=== PATIENT | male | born 1960 | race Caucasian/White ===

== ENCOUNTER 2016-06-11 13:21 | Day surgery (SDC) | payer OTHER ==
[2016-06-08 15:05] VITALS: BMI 27.6
[~2016-06-11] VITALS: Ht 170.2 cm; Wt 78.0 kg
[2016-06-11] VITALS (12 sets, daily range): BP systolic 121–149; BP diastolic 55–85; PULSE 54–89; RESP 15–19; Ht 170.2 cm; Wt 78.0 kg
[2016-06-11] MEDS ORDERED: CEFAZOLIN 2 GM/50 ML (PMX) 50 ML IVPB ONE (13:30)
[2016-06-11] MEDS ORDERED: SOD CHLORIDE 0.9% 1,000 ML IV ONE (13:30)
[2016-06-11] MEDS ORDERED: POLYMYXIN/BACITRACIN 1L IRRIG ONE (13:56)
[2016-06-11] MEDS ORDERED: BUPIVACAINE 0.25% (MPF) 30 ML INJ ONE (14:00)
[2016-06-11] MEDS ORDERED: ROCURONIUM 50 MG INJ ONE (14:35)
[2016-06-11] MEDS ORDERED: PROPOFOL 20 ML ONE (14:35)
[2016-06-11] MEDS ORDERED: LIDOCAINE 2% (SDV) 5 ML INJ ONE (14:35)
[2016-06-11] MEDS ORDERED: FENTAnyl 50 MCG/ML VIAL ONE ×2 (14:40→15:14)
--- NOTE | 2016-06-11 14:54 | RADRPT ---
PROCEDURE: XR Chest. CLINICAL INDICATION: PRE OP TECHNIQUE: PA and Lateral views of the chest were obtained. COMPARISON: None. FINDINGS: The soft tissues are normal. The bony elements are normal. The heart, cardiomediastinal silhouette and hilar structures are normal. The pulmonary vasculature is normal. There is a left-sided aorta. The lungs are clear. The costophrenic angles are normal. IMPRESSION: 1. Normal chest x-ray. RPTAT:AAJJ Physician Tyler Date Time Electronically viewed and signed by Kingston Hannon Physician on 06/11/2016 14:54 SHWETA/
[2016-06-11] MEDS ORDERED: NEOSTIGMINE 3 MG/3 ML SYRINGE ONE (15:24)
[2016-06-11] MEDS ORDERED: GLYCOPYRROLATE 0.4 MG INJ ONE (15:24)
[2016-06-11] MEDS ORDERED: HYDROCODONE/APAP (5/325) TAB PO ONE (16:00)
--- NOTE | 2016-06-11 19:17 | OPR ---
DATE OF OPERATION: 06/11/2016 INDICATION: This is a 56-year-old male with a right inguinal hernia. He requests surgical repair. Risks, alternatives, benefits, and personnel were discussed with the patient. The patient expresse d understanding and consents to the operation. PREOPERATIVE DIAGNOSIS: Right inguinal hernia. POSTOPERATIVE DIAGNOSES: Sliding right inguinal hernia. OPERATION: 1. Open sliding right inguinal hernia repair with medium size Ultrapro hernia system mesh. 2. Right ilioinguinal nerve block, CPT code 08341. SURGEON: Yolette Dunbar MD SPECIMENS: None. COMPLICATIONS: None. ANESTHESIA: General. DESCRIPTION OF PROCEDURE: The patient was taken to the OR and prepped and draped in the usual steri le fashion. Surgical timeout was performed. IV antibiotics were given. Right inguinal oblique inc ision was made with a 10 blade. Dissection cautery was carried down to the external oblique fascia, which was opened with a 15 blade. This incision is extended medial inferiorly and lateral superior ly with Metzenbaum scissors. Cord structures were identified and encircled with a [place] drain. I ndirect hernia was identified. There was a sliding component, which was reduced. This indirect her negrita is bolstered with the disk portion of the UltraPro hernia system mesh, which was secured in plac e with a running 0 Prolene from the pubic tubercle along the shelving edge of the inguinal ligament and superiorly to the internal oblique with interrupted 3-0 Vicryl. [place] mesh was secured in a sim ilar fashion with a running 0 Prolene from the pubic tubercle along the shelving edge of the inguina l ligament and superiorly to the internal oblique with interrupted 3-0 Vicryl. Straps are created a nd reapproximated with interrupted 0 plain to recreate the inguinal ring. External oblique fascia i s closed with a running 3-0 Vicryl. Stephanie's was closed with interrupted 0 Vicryl. Skin was closed with skin paresh. Local anesthesia was injected into the incision site. A right ilioinguinal blo ck was performed by finding a point 2 cm medial and 2 cm inferior to the ASIS. Marcaine was injecte d in a fanning motion after penetration to the external and internal oblique fascia. There was good hemostasis. Dry dressings were applied. Dictated By: YOLETTE NAPOLES/SHAILA Conf#: [id number] [facility]#: [id number]
--- NOTE | 2016-06-12 11:25 | RADRPT ---
Vent Rate: 67 bpm RR Interval: 0 msec IA Interval: 136 msec QRS Duration: 82 msec QT Interval: 420 msec QTC Interval: 443 msec P-R-T [place]: 27 - 7 - 54 degrees Normal sinus rhythm Septal infarct , age undetermined Abnormal ECG Electronically Signed By: Ceferino Green [id number]
[2016-06-12] MEDS ORDERED: OXYC-279 PO (16:57)
== END 2016-06-11 17:55 | disposition home or self-care (01) ==
LOC: SDS 13:21
PROVIDERS: ATTEND Surgery
DX: K40.90 Unilateral inguinal hernia, without obstruction or gangrene, not specified as recurrent (principal)
CPT/HCPCS: 49505; 71010; 93005; C1781; J2710; J3010; Z7512; Z7610

== ENCOUNTER 2016-06-12 13:06 | Emergency (ER) | payer OTHER ==
[~2016-06-12] VITALS: Ht 167.6 cm; Wt 68.0 kg
[2016-06-12 13:30] VITALS: Ht 167.6 cm; Wt 68.0 kg
[2016-06-12] MEDS ORDERED: morphine 4 MG/ML VIAL IV STA ×2 (14:04→16:14)
[2016-06-12] MEDS ORDERED: OXYCODONE/ACETAMINOPHEN (5/325) TAB PO ONE (14:30)
[2016-06-12 14:57] LABS: ADD SCAN DIFF NO
[2016-06-12 15:01] LABS: BASOPHILS % 0.1 % (0.0-2.0); EOSINOPHILS # 0.2 10^3/ul (0.0-0.5); EOSINOPHILS % 1.7 % (0.0-7.0); HEMATOCRIT 41.6 % (42.0-52.0); HEMOGLOBIN 14.7 g/dl (14.0-18.0); LYMPHOCYTES # 1.7 10^3/ul (0.8-2.9); LYMPHOCYTES % 17.5 % (15.0-51.0); MEAN CORPUSCULAR HEMOGLOBIN 30.9 pg (29.0-33.0); MEAN CORPUSCULAR HGB CONC 35.3 g/dl (32.0-37.0); MEAN CORPUSCULAR VOLUME 87.4 fl (82.0-101.0); MEAN PLATELET VOLUME 10.3 fl (7.4-10.4); MONOCYTE # 0.9 10^3/ul (0.3-0.9); MONOCYTES % 9.4 % (0.0-11.0); NEUTROPHIL # 6.8 10^3/ul (1.6-7.5); NEUTROPHILS % 70.9 % (39.0-77.0); PLATELET COUNT 181 10^3/UL (140-415); RED BLOOD COUNT 4.76 10^6/ul (4.70-6.10); RED CELL DISTRIBUTION WIDTH 11.9 % (11.5-14.5); WHITE BLOOD COUNT 9.5 10^3/ul (4.8-10.8)
[2016-06-12 15:22] LABS: ADD UMIC NO; URINE BILIRUBIN (Dip) NEGATIVE (NEGATIVE); URINE BLOOD (Dip) NEGATIVE (NEGATIVE); URINE COLOR LT. YELLOW (YELLOW); URINE GLUCOSE (Dip) NEGATIVE (NEGATIVE); URINE KETONES (Dip) NEGATIVE (NEGATIVE); URINE LEUKOCYTE ESTERASE (Dip) NEGATIVE (NEGATIVE); URINE NITRITE (Dip) NEGATIVE (NEGATIVE); URINE TOTAL PROTEIN (Dip) NEGATIVE (NEGATIVE); URINE UROBILINOGEN (Dip) 1.0 E.U./dL (0.1-1.0)
[2016-06-12 15:26] LABS: CALCIUM 8.5 mg/dl (8.4-10.2); CREATININE 0.94 mg/dl (0.61-1.24); POTASSIUM 4.1 mmol/L (3.5-5.1)
[2016-06-12] MEDS ORDERED: SOD CHLORIDE 0.9% 100 ML ONE (15:53)
[2016-06-12] MEDS ORDERED: IOHEXOL 300MG/ML 150 ML BTL ONE (15:53)
--- NOTE | 2016-06-12 16:36 | RADRPT ---
PROCEDURE: CT abdomen and pelvis with contrast. CLINICAL INDICATION: Status post groin hernia repair 1 day prior. Right lower quadrant pain. TECHNIQUE: CT scan of the abdomen and pelvis with contrast was performed on a multi-slice [facility]. The patient was scanned following the uncomplicated intravenous administration 100 cc of . Coronal and sagittal reformatted images were obtained from the axial source images. One or more o f the following does reduction techniques were used: Automated exposure control; adjustment of the mA and/or kV according to patient size; use of the aorta of reconstruction technique. Images were re viewed on a high-resolution PACS workstation. The total exam CTDI equals 13.8 mGy and the total exam DLP equals 892.4 mGy-cm. COMPARISON: None available FINDINGS: There is mild to moderate left greater than right posterior lower lobe subsegmental atelectasis. Th e heart size is normal, without pericardial thickening or effusion. The liver, spleen, and pancreas are normal. The gallbladder is normal. The adrenal glands are symmetric and normal. The kidneys show normal and symmetric enhancement. No renal calculus or obstructive uropathy is seen. The aorta is of normal caliber. Atherosclerotic calcifications are present There is no retroperiton eal lymph node enlargment. There is no evidence of large or small bowel obstruction.. There is mild to moderate retained colon ic stool. A normal appendix is identified. No free fluid or fluid collections are identified. No i nflammatory changes are seen. Postoperative changes are seen in the region of the right groin and right inguinal canal related to recent hernia repair. There is moderate amounts of gas in the subcutaneous tissues extending into t he right inguinal canal and scrotum. There is complex fluid and linear hyperdense material within t he left inguinal canal which may represent enhancing zheng of abnormal fluid collection or may repre sent fluid interspersed with hernia repair material. There is thickening of the contents of the rig ht inguinal canal, as well as vascular engorgement. There is no definitively drainable abscess, how ever small amounts of fluid may represent infected fluid. Left inguinal canal is within normal limi ts. The bladder is within normal limits. A mild to moderate degenerative changes of the lumbar spine.. IMPRESSION: 1. Postoperative changes related to right inguinal hernia repair confound evaluation of the right i nguinal canal. There is increased soft tissue density fluid, and linear hyperdensities extending int o the right inguinal canal. Differential diagnosis includes normal postoperative change, prolapse o f hernia mesh in the inguinal canal, and septated fluid collection. Recommend short interval follow -up as clinically indicated. No evidence of intra-abdominal abscess or fluid collection. 2. Gas and fluid within the scrotal sac right inguinal canal and extending into the right anterior pelvic and abdominal wall most consistent with normal postoperative change. 3. Mild to moderate retained colonic stool. Call report: A call report was made to Dr. Car at approximately 04:30 p.m. on 06/12/2016. .RPTAT: KK .Nestor Sanchez MD, MD Date Time Electronically viewed and signed by .Nestor Sanchez MD, on 06/12/2016 16:35 .B/
[2016-06-12] MEDS ORDERED: OXYC-279 PO (16:57)
--- NOTE | 2016-06-12 20:21 | ERD ---
ER Documentation Chief Complaint Date/Time DATE: 06/12/16 TIME: 20:14 Chief Complaint RT GROIN PAIN. S/P SURGERY HPI 56-year-old male with a history of a right inguinal hernia status post elective hernia repair with mesh yesterday by Dr. Garvey presenting to the ER with complaints of severe pain at his surgical site. He states he has been unable to walk secondary to the pain. The pain is aching, stabbing, nonradiating, at the surgical site. It is a 9 out of 10, worse with any movement, better with not moving. His home pain medications are not helping. He denies any difficulty with urination or pain with urination. He has no hematuria. He has not had a bowel movement since the surgery, but he states he cannot go secondary to the pain. He denies any fevers, chills, nausea, vomiting. Otherwise has no abdominal pain. ROS All systems reviewed and are negative except as per history of present illness. Medications Home Meds Active Scripts Oxycodone HCl/Acetaminophen (Percocet 5-325 mg Tablet) 1 Each Tablet, 1 EACH PO Q4H WHILE AWAKE Y for SEVERE PAIN LEVEL 7-10, #20 TAB Prov:HARIS UPTON MD 06/12/16 Allergies Allergies: Coded Allergies: No Known Allergy (Unverified , 06/11/16) PMhx/Soc History of Surgery: Yes (Right inguinal hernia repair June 11, 2016) Anesthesia Reaction: No Hx Neurological Disorder: No Hx Respiratory Disorders: No Hx Cardiac Disorders: No Hx Psychiatric Problems: No Hx Miscellaneous Medical Probl: No Hx Alcohol Use: No Hx Substance Use: No Hx Tobacco Use: Yes (2 TO 3 CIG) Smoking Status: Current some day smoker FmHx Family History: No diabetes Physical Exam Vitals Vital Signs Date Time Temp Pulse Resp B/P Pulse Ox O2 Delivery O2 Flow Rate FiO2 06/12/16 13:30 98.8 74 20 147/84 100 Physical Exam Const: No significant distress, nontoxic Head: Atraumatic Eyes: Normal Conjunctiva ENT: Normal External Ears, Nose and Mouth. Neck: Full range of motion..~ No meningismus. Resp: Clear to auscultation bilaterally Cardio: Regular rate and rhythm, no murmurs Abd: Soft, non tender, non distended. Normal bowel sounds. Right inguinal hernia surgical incision with paresh, no surrounding erythema, induration, fluctuance. There is no drainage from the wound. There is mild overlying swelling, as expected after surgery : Penis and scrotum appear normal Skin: No petechiae or rashes Back: No midline or flank tenderness Ext: No cyanosis, or edema Neur: Awake and alert Psych: Normal Mood and Affect Result Diagram: 06/12/16 1440 06/12/16 1440 Results 24 hrs Laboratory Tests Test 06/12/16 14:40 White Blood Count 9.510^3/ul Red Blood Count 4.7610^6/ul Hemoglobin 14.7g/dl Hematocrit 41.6% Mean Corpuscular Volume 87.4fl Mean Corpuscular Hemoglobin 30.9pg Mean Corpuscular Hemoglobin Concent 35.3g/dl Red Cell Distribution Width 11.9% Platelet Count 67599^3/UL Mean Platelet Volume 10.3fl Neutrophils % 70.9% Lymphocytes % 17.5% Monocytes % 9.4% Eosinophils % 1.7% Basophils % 0.1% Nucleated Red Blood Cells % 0.0/100WBC Neutrophils # 6.810^3/ul Lymphocytes # 1.710^3/ul Monocytes # 0.910^3/ul Eosinophils # 0.210^3/ul Basophils # 0.010^3/ul Nucleated Red Blood Cells # 0.010^3/ul Urine Color LT. YELLOW Urine Clarity CLEAR Urine pH 6.0 Urine Specific [place] 1.015 Urine Ketones NEGATIVE Urine Nitrite NEGATIVE Urine Bilirubin NEGATIVE Urine Urobilinogen 1.0 E.U./dL Urine Leukocyte Esterase NEGATIVE Urine Hemoglobin NEGATIVE Urine Glucose NEGATIVE% Urine Total Protein NEGATIVE Sodium Level 136mmol/L Potassium Level 4.1mmol/L Chloride Level 104mmol/L Carbon Dioxide Level 28mmol/L Anion Gap 8 Blood Urea Nitrogen 15mg/dl Creatinine 0.94mg/dl Glucose Level 113mg/dl Calcium Level 8.5mg/dl Current Medications Medications (Trade) Dose Ordered Sig/Lucy Route PRN Reason Start Time Stop Time Status Last Admin Dose Admin Oxycodone/ Acetaminophen (Percocet (5/ 325)) 1 tab ONCE ONCE PO 06/12/16 14:30 06/12/16 14:30 DC Morphine Sulfate (morphine) 4 mg ONCE STAT IV 06/12/16 14:04 06/12/16 14:25 DC 06/12/16 14:35 IV Flush 10 ml 10 ml STK-MED ONCE .ROUTE 06/12/16 15:53 06/12/16 15:54 DC 06/12/16 16:12 Sodium Chloride (NS) 100 ml @ ud STK-MED ONCE .ROUTE 06/12/16 15:53 06/12/16 15:54 DC 06/12/16 16:12 Iohexol (Omnipaque 300mg/ ml) 150 ml STK-MED ONCE .ROUTE 06/12/16 15:53 06/12/16 15:54 DC 06/12/16 16:13 Morphine Sulfate (morphine) 4 mg ONCE STAT IV 06/12/16 16:14 06/12/16 16:15 DC 06/12/16 16:34 Procedures/MDM Labs: CBC, BMP, urinalysis with no significant abnormalities CT abdomen and pelvis with IV contrast: IMPRESSION: 1. Postoperative changes related to right inguinal hernia repair confound evaluation of the right inguinal canal. There is increased soft tissue density fluid, and linear hyperdensities extending into the right inguinal canal. Differential diagnosis includes normal postoperative change, prolapse of hernia mesh in the inguinal canal, and septated fluid collection. Recommend short interval follow-up as clinically indicated. No evidence of intra-abdominal abscess or fluid collection. 2. Gas and fluid within the scrotal sac right inguinal canal and extending into the right anterior pelvic and abdominal wall most consistent with normal postoperative change. 3. Mild to moderate retained colonic stool. Call report: A call report was made to Dr. Car at approximately 04:30 p.m. on 06/12/2016. .RPTAT: KK .Nestor Sanchez MD, MD Date Time Electronically viewed and signed by .Nestor Sanchez MD, on 2016 16:35 MDM: Patient is presenting with postoperative pain at the surgical site of his right inguinal hernia repair. I spoke with Dr. Garvey, who stated that this is most likely normal postop pain. He recommended an ultrasound or a CT scan to evaluate for recurrent hernia. CT scan was done and did not show evidence of recurrent hernia, however according to the radiologist it is difficult to interpret the images given the significant postop swelling and subcutaneous air. There is no evidence of appendicitis or bowel obstruction or other acute intra-abdominal pathology at this time. Patient's pain was controlled with IV morphine. He was tolerating food prior to discharge. I reassured him that his pain is likely normal after this type of surgery. I offered him a new prescription for Percocet, which is likely stronger than when he is taking at home. However I encouraged him to return for any worsening symptoms or if his pain is not improving at all. I also advised to follow-up with Dr. Garvey sooner than his 2 week appointment if he is still not feeling like he is improving. Patient is comfortable with the plan. He was stable upon discharge. Departure Diagnosis: Primary Impression: Postoperative pain Additional Impression: History of right inguinal hernia repair Condition: Stable Patient Instructions: After Hernia Surgery Referrals: Santhosh GARVEY Additional Instructions: Follow-up with your surgeon as instructed. Follow-up sooner if your symptoms are not improving. Return to the ER as needed. HARIS UPTON MD June 12, 2016 20:20
== END 2016-06-12 17:19 | disposition home or self-care (01) ==
LOC: E/R 13:06
DX: G89.18 Other acute postprocedural pain (principal); R10.30 Lower abdominal pain, unspecified; F17.210 Nicotine dependence, cigarettes, uncomplicated; Z98.890 Other specified postprocedural states
CPT/HCPCS: 36415; 74177; 80048; 81003; 85025; 96374; 96376; J2270; Q9967; Z7502; Z7610

== ENCOUNTER 2016-07-10 12:45 | Emergency (ER) | payer OTHER ==
[~2016-07-10] VITALS: Ht 157.5 cm; Wt 81.0 kg
[~2016-07-10 12:45] MED LIST: OXYC-279 PO
[2016-07-10 12:52] VITALS: Ht 157.5 cm; Wt 81.0 kg
[2016-07-10] MEDS ORDERED: HYDROCODONE/APAP (10/325) TAB PO ONE (13:30)
--- NOTE | 2016-07-10 14:10 | RADRPT ---
PROCEDURE: US Lower extremity Venous. CLINICAL INDICATION: Bilateral lower extremity edema TECHNIQUE: Multiple sonographic images of the bilateral lower extremity deep venous system was obt ained utilizing grayscale, color-flow, compressive sonography and doppler imaging with augmentation. The images were reviewed on a PACS workstation. COMPARISON: None. FINDINGS: There is normal compressibility and flow within the bilateral common femoral, femoral , posterior ti bial , peroneal and popliteal veins. RPTAT: AA IMPRESSION: No sonographic evidence for deep venous thrombosis. .Mauro John MD, MD Date Time Electronically viewed and signed by .Mauro John MD, on 07/10/2016 14:10 .S/
[2016-07-10] MEDS ORDERED: HYDR-902 PO (14:22)
--- NOTE | 2016-07-10 14:31 | ERD ---
ER Documentation Chief Complaint Date/Time DATE: 07/10/16 TIME: 14:30 Chief Complaint right leg pain x 2 weeks send r/o dvt HPI This a 56-year-old male here with right leg pain for 2 weeks. He was seen by his follow-up surgeon after hernia repair. He was sent to the ER to rule out DVT. Since pain is in his mid thigh on the right side. He is also noted some swelling. No nausea no vomiting no fevers no chills no chest pain no other current complaints ROS All systems reviewed and are negative except as per history of present illness. Medications Home Meds Active Scripts Hydrocodone/Acetaminophen ([place] 10-325 Tablet) 1 Each Tablet, 1 TAB PO Q6H Y for PAIN, #20 TAB Prov:NISHI ALEMAN 07/10/16 Oxycodone HCl/Acetaminophen (Percocet 5-325 mg Tablet) 1 Each Tablet, 1 EACH PO Q4H WHILE AWAKE Y for SEVERE PAIN LEVEL 7-10, #20 TAB Prov:HARIS UPTON MD 06/12/16 Allergies Allergies: Coded Allergies: No Known Allergy (Unverified , 06/11/16) PMhx/Soc History of Surgery: Yes (Right inguinal hernia repair June 11, 2016) Anesthesia Reaction: No Hx Neurological Disorder: No Hx Respiratory Disorders: No Hx Cardiac Disorders: No Hx Psychiatric Problems: No Hx Miscellaneous Medical Probl: No Hx Alcohol Use: No Hx Substance Use: No Hx Tobacco Use: Yes (2 TO 3 CIG) Smoking Status: Unknown if ever smoked Physical Exam Vitals Vital Signs Date Time Temp Pulse Resp B/P Pulse Ox O2 Delivery O2 Flow Rate FiO2 07/10/16 12:52 97.8 74 20 145/87 99 Physical Exam Const: [] Head: Atraumatic Eyes: Normal Conjunctiva ENT: Normal External Ears, Nose and Mouth. Neck: Full range of motion..~ No meningismus. Resp: Clear to auscultation bilaterally Cardio: Regular rate and rhythm, no murmurs Abd: Soft, non tender, non distended. Normal bowel sounds Skin: No petechiae or rashes Back: No midline or flank tenderness Ext: No cyanosis, or edema Neur: Awake and alert Psych: Normal Mood and Affect Results 24 hrs Current Medications Medications (Trade) Dose Ordered Sig/Lucy Route PRN Reason Start Time Stop Time Status Last Admin Dose Admin Acetaminophen/ Hydrocodone Bitart ([place] (88534)) 1 tab ONCE ONCE PO 07/10/16 13:30 07/10/16 13:31 DC 07/10/16 13:28 Procedures/MDM DVT study negative Medical decision-making: This very pleasant 56-year-old male with some postoperative pain and swelling in his leg. No evidence of deep venous thrombosis. Good pulses. Patient be discharged home to follow-up with PCP. Return for worsening symptoms. Departure Diagnosis: Primary Impression: Postoperative pain Condition: Stable Patient Instructions: Peripheral Edema, Unilateral NISHI ALEMAN July 10, 2016 14:30
== END 2016-07-10 14:44 | disposition home or self-care (01) ==
LOC: E/R 12:45
DX: M79.604 Pain in right leg (principal); G89.18 Other acute postprocedural pain; Z87.891 Personal history of nicotine dependence
CPT/HCPCS: 93970; Z7502; Z7610

== ENCOUNTER 2017-09-30 10:36 | Observation (INO) | END 2017-10-02 16:40 | disposition home or self-care (01) ==